=== PATIENT | male | born 1970 | race Caucasian/White ===

== ENCOUNTER 2023-02-05 07:47 | Emergency (ER) | payer OTHER, SELFPAY ==
[2023-02-05] VITALS (12 sets, daily range): BP systolic 101–116; BP diastolic 55–77; PULSE 80–88; RESP 14–24; TEMP 36.6; O2SAT 94–98; BMI 38.6
--- NOTE | 2023-02-05 07:55 | DI.CT.S_ITS ---
PROCEDURE: CT HEAD/BRAIN WO CON INDICATIONS: syncope TECHNIQUE: Noncontrast 4.5 mm thick angled axial sections acquired from the foramen magnum to the vertex, with coronal and sagittal reformats. For radiation dose reduction, the following was used: automated exposure control, adjustment of mA and/or kV according to patient size. COMPARISON: None. FINDINGS: Image quality: Excellent. CSF spaces: Basal cisterns are patent. No extra-axial fluid collections. Ventricles are normal in size and shape. Brain: No midline shift. No intracranial masses or hemorrhage. Bernal-white matter interface is normal. Skull and face: Calvarium and visualized facial bones are intact, without suspicious lesions. Sinuses: Visualized sinuses and mastoids are clear. IMPRESSION: 1. No acute intracranial process. Dictated by: Stephanie Guerra M.D. on 02/05/2023 at 8:40 Approved by: Stephanie Guerra M.D. on 02/05/2023 at 8:41
--- NOTE | 2023-02-05 07:55 | DI.RAD.S_ITS ---
PROCEDURE: XR CHEST 1V INDICATIONS: chest pain TECHNIQUE: One view of the chest was acquired. COMPARISON: None. FINDINGS: Surgical changes and devices: None. Lungs and pleura: Lungs are clear. No pleural effusions or pneumothorax. Mediastinum: Mediastinal contours appear normal. Heart size is normal. Bones and chest wall: No suspicious bony lesions. Overlying soft tissues appear unremarkable. IMPRESSION: No acute pulmonary process. Dictated by: Stephanie Guerra M.D. on 02/05/2023 at 8:42 Approved by: Stephanie Guerra M.D. on 02/05/2023 at 8:42
--- NOTE | 2023-02-05 08:03 | ED_ITS ---
HPI - Syncope General Chief Complaint: Syncope Stated Complaint: syncope/hit head Time Seen by Provider: 02/05/23 07:54 History of Present Illness HPI narrative: Patient is a 52-year-old male history of hypertension but frequently has syncopal episodes secondary to hypotension presents today with a syncopal episode with nausea vomiting. He reports that he was feeling well this morning. He can tell his blood pressure is going to drop he felt that way sitting down he also got extremely nauseous which was different he went outside threw up passed out and hit his head. There was a brief loss of consciousness no shaking no postictal period. EMS arrived he had a blood pressure of 78 and his glucose was 120. He is awake alert oriented now he has no pain. He reports this frequently happens he sees a president of the [place] and takes blood pressure medication. Related Data Previous Rx's Medication Instructions Recorded losartan 50 mg-hydrochlorothiazide 1 tab PO DAILY #60 tabs 02/05/23 12.5 mg tablet Allergies Allergy/AdvReac Type Severity Reaction Status Date / Time No Known Drug Allergies Allergy Verified 02/05/23 09:24 Patient History Social History Smoking Status: Never smoker Exam Initial Vital Signs Initial Vital Signs: Vital Signs Pulse Rate 83 02/05/23 07:59 Respiratory Rate 18 02/05/23 07:59 Pulse Oximetry 95 02/05/23 07:59 GENERAL: Patient well-appearing 52-year-old male HEENT: Head posterior abrasion no laceration bleeding controlled,EOMI, pupils reactive, face symmetric, moist mucous membranes NECK: Supple no vertebral tenderness no step-off CARDIOVASCULAR: Regular rate and rhythm without murmurs, rubs or gallops. RESPIRATORY: Breath sounds equal bilaterally, no wheezes rales or rhonchi. ABDOMEN: Soft, nontender no epigastric pain no right upper quadrant pain no distention EXTREMITIES: Normal range of motion, no clubbing or edema. Neurovascularly intact NEUROLOGICAL: Alert and oriented x4.Normal gait and speech. Packaging Specialist strength equal bilaterally moving all extremities SKIN: Warm, dry, no laceration, no petechiae, no rashes or lesions. Course Orders Ordered: ED Orders 02/05/23 07:55 CT head/brain wo con Stat XR chest 1V Stat Complete Blood Count AUTO DIFF Stat Comprehensive Metabolic Panel Stat Lipase Stat Troponin & CK Cardiac Panel Stat EKG-12 Lead Stat Discontinued Medications Sodium Chloride (Normal Saline 0.9%) 1,000 mls @ 1,000 mls/hr IV BOLUS ONE Stop: 02/05/23 08:54 Last Infusion: 02/05/23 09:20 Dose: Infused Documented By: Admin: 02/05/23 08:20 Dose: 1,000 mls/hr Documented By: JANET Sodium Chloride (Normal Saline 0.9%) 1,000 mls @ 1,000 mls/hr IV BOLUS ONE Stop: 02/05/23 10:11 Last Admin: 02/05/23 09:20 Dose: 1,000 mls/hr Documented By: JANET Vital Signs Vital signs: Vital Signs - 8 hr 02/05/23 07:59 02/05/23 08:00 02/05/23 08:00 Temperature Pulse Rate 83 83 Respiratory Rate 18 24 Blood Pressure 111/74 Pulse Oximetry 95 95 Oxygen Delivery Method 02/05/23 08:01 02/05/23 08:14 02/05/23 08:14 Temperature 97.9 F Pulse Rate 88 86 Respiratory Rate 16 22 Blood Pressure 116/77 102/55 L Pulse Oximetry 98 95 Oxygen Delivery Method Room Air 02/05/23 08:30 02/05/23 08:30 02/05/23 08:40 Temperature Pulse Rate 81 81 Respiratory Rate 16 20 Blood Pressure 103/64 Pulse Oximetry 94 97 Oxygen Delivery Method Room Air 02/05/23 08:40 02/05/23 08:50 02/05/23 08:50 Temperature Pulse Rate 80 Respiratory Rate 20 Blood Pressure 103/65 108/66 Pulse Oximetry 96 Oxygen Delivery Method 02/05/23 09:00 02/05/23 09:00 02/05/23 09:06 Temperature Pulse Rate 80 Respiratory Rate 14 Blood Pressure 101/61 102/59 L Pulse Oximetry 95 Oxygen Delivery Method 02/05/23 09:06 02/05/23 09:10 02/05/23 09:10 Temperature Pulse Rate 80 82 Respiratory Rate 22 18 Blood Pressure 105/62 Pulse Oximetry 95 94 Oxygen Delivery Method Room Air 02/05/23 09:20 02/05/23 09:20 02/05/23 09:30 Temperature Pulse Rate 80 80 Respiratory Rate 20 21 Blood Pressure 114/69 Pulse Oximetry 97 94 Oxygen Delivery Method Room Air 02/05/23 09:30 Temperature Pulse Rate Respiratory Rate Blood Pressure 114/65 Pulse Oximetry Oxygen Delivery Method MDM - Syncope Lab Data 02/05/23 07:55 02/05/23 07:55 Labs: Lab Results 02/05/23 Range/Units 07:55 WBC 11.1 H (4.5-11.0) X10^3/uL RBC 4.50 (4.5-5.9) X10^6/uL Hgb 14.4 (13.5-17.5) g/dL Hct 41.3 (41-53) % MCV 91.6 (80-100) fL MCH 32.0 (26-34) PG MCHC 34.9 (30-36) % RDW 13.2 (11.6-14.8) % Plt Count 259 (150-400) X10^3/uL Neut % (Auto) 81.9 H (50-75) % Lymph % (Auto) 10.4 L (25-40) % [place] % (Auto) 5.5 (3-14) % Eos % (Auto) 1.8 L (2-4) % Baso % (Auto) 0.4 (0-2) % Neut # (Auto) 9100 H (2570-3690) /uL Lymph # (Auto) 1200 (1582-2398) /uL [place] # (Auto) 600 (0-900) /uL Eos # (Auto) 200 (0-450) /uL Baso # (Auto) 0 (0-100) /uL Sodium 136 L (137-145) mmol/L Potassium 4.0 (3.4-5.1) mmol/L Chloride 98 (98-107) mmol/L Carbon Dioxide 29 (22-32) mmol/L BUN 22 H (9-20) mg/dL Creatinine 1.65 H (0.66-1.25) mg/dL Estimated GFR 50 L (>60) mL/min BUN/Creatinine Ratio 13.3 (6-22) Glucose 141 H (70-100) mg/dL Calcium 10.5 H (8.4-10.2) mg/dL Total Bilirubin 0.6 (0.2-1.3) mg/dL AST 50 (17-59) IU/L ALT 91 H (<50) IU/L Alkaline Phosphatase 65 (38-126) U/L Total Creatine Kinase 64 (55-170) U/L Troponin I < 0.012 (0.01-0.034) ng/mL Total Protein 8.2 (6.3-8.2) g/dL Albumin 4.8 (3.5-5.0) g/dL Globulin 3.4 (1.7-4.1) g/dL Albumin/Globulin Ratio 1.4 (1.0-2.8) Lipase 63 (23-300) U/L Imaging Data CT scan - head: Radiologist's Impression: PROCEDURE: CT HEAD/BRAIN WO CON INDICATIONS: syncope TECHNIQUE: Noncontrast 4.5 mm thick angled axial sections acquired from the foramen magnum to the vertex, with coronal and sagittal reformats. For radiation dose reduction, the following was used: automated exposure control, adjustment of mA and/or kV according to patient size. COMPARISON: None. FINDINGS: Image quality: Excellent. CSF spaces: Basal cisterns are patent. No extra-axial fluid collections. Ventricles are normal in size and shape. Brain: No midline shift. No intracranial masses or hemorrhage. Bernal-white matter interface is normal. Skull and face: Calvarium and visualized facial bones are intact, without suspicious lesions. Sinuses: Visualized sinuses and mastoids are clear. IMPRESSION: 1. No acute intracranial process. Dictated by: Stephanie Guerra M.D. on 02/05/2023 at 8:40 Chest x-ray: Radiologist's Impression: PROCEDURE: XR CHEST 1V INDICATIONS: chest pain TECHNIQUE: One view of the chest was acquired. COMPARISON: None. FINDINGS: Surgical changes and devices: None. Lungs and pleura: Lungs are clear. No pleural effusions or pneumothorax. Mediastinum: Mediastinal contours appear normal. Heart size is normal. Bones and chest wall: No suspicious bony lesions. Overlying soft tissues appear unremarkable. IMPRESSION: No acute pulmonary process. Dictated by: Stephanie Guerra M.D. on 02/05/2023 at 8:42 ECG Data Interpretation: Normal sinus rhythm rate 80 ME interval 168 QRS 100 QTC 437 no changes MDM Narrative Medical decision making narrative: Patient is a 52-year-old male with history of hypertension but frequently get hypotensive. It sounds as though that this happened again today he had a syncopal episode hypotensive for EMS. He is overall feeling better. Head CT is negative he is a small abrasion that does not require repair. Blood work does not show any anemia, however creatinine is up at 1.65 normal electrolytes and a negative troponin. He is on losartan hydrochlorothiazide 100 mg and 25 at this time I think reasonable to cut this in half and see if it helps. He is also received a L of fluid he will need to have his creatinine rechecked with his primary, he actually is already scheduled to do so. He ambulated around the ED without any difficulty. Blood pressure still fluctuated some but overall stable not tachycardic Discharge Plan Departure Patient Disposition: Home Clinical Impression: Syncope due to orthostatic hypotension Instructions: DI for Syncope in Adults (Fainting) Activity Restrictions/Additional Instructions: *You have been diagnosed with orthostatic hypotension *What to do: At this time please have your kidney function rechecked your creatinine today is 1.65 I am not sure of your baseline. Also I think decreasing the dose of your blood pressure medication be helpful. Please monitor your blood pressure at home and talk with your primary care provider this week. *Continue to take medications as directed Losartan 50/hydrochlorothiazide 12.5-> DOD *Follow up with your primary care provider in 2-3 days or call [phone] *Return to ER if you should have recurrent episodes dizziness lightheadedness or any new, worsening or concerning symptoms Prescriptions: New losartan-hydrochlorothiazide 50-12.5 mg tablet 1 tab PO DAILY Qty: 60 0RF Referrals: Miscellaneous,DoctorMD [Primary Care Provider] - Stand Alone Forms: Patient Portal/API
[2023-02-05 08:09] LABS: Add Manual Diff / Slide Review NO; Basophils Absolute Auto 0 /uL (0-100); Basophils Percent Auto 0.4 % (0-2); Eosinophils Absolute Auto 200 /uL (0-450); Eosinophils Percent Auto 1.8 % (2-4); Hematocrit 41.3 % (41-53); Hemoglobin 14.4 g/dL (13.5-17.5); Lymphocytes Absolute Auto 1200 /uL (1100-4500); Lymphocytes Percent Auto 10.4 % (25-40); Mean Corpuscular HGB Conc 34.9 % (30-36); Mean Corpuscular Volume 91.6 fL (80-100); Monocytes Absolute Auto 600 /uL (0-900); Monocytes Percent Auto 5.5 % (3-14); Neutrophils Absolute Auto 9100 /uL (1500-7000); Neutrophils Percent Auto 81.9 % (50-75); Platelet Count 259 X10^3/uL (150-400); Red Cell Distribution Width 13.2 % (11.6-14.8); White Blood Cell Count 11.1 X10^3/uL (4.5-11.0)
[2023-02-05 08:16] LABS: Alanine Aminotransferase 91 IU/L (<50); Albumin 4.8 g/dL (3.5-5.0); Albumin Globulin Ratio 1.4 (1.0-2.8); Alkaline Phosphatase 65 U/L (38-126); Aspartate Aminotransferase 50 IU/L (17-59); BUN Creatinine Ratio 13.3 (6-22); Bilirubin Total 0.6 mg/dL (0.2-1.3); Blood Urea Nitrogen 22 mg/dL (9-20); Calcium 10.5 mg/dL (8.4-10.2); Carbon Dioxide 29 mmol/L (22-32); Chloride 98 mmol/L (98-107); Creatine Kinase 64 U/L (55-170); Estimated Glomerular Filt Rate 50 mL/min (>60); Globulin 3.4 g/dL (1.7-4.1); Glucose 141 mg/dL (70-100); HEMOLYSIS < 15 (0-50); Lipase 63 U/L (23-300); Sodium 136 mmol/L (137-145); Total Protein 8.2 g/dL (6.3-8.2)
[2023-02-05] MEDS: SODIUM CHLORIDE 0.9% 1,000 ML 1000 ML IV ×2 (08:20→09:20)
[2023-02-05 08:27] LABS: Troponin I < 0.012 ng/mL (0.01-0.034)
--- NOTE | 2023-02-05 10:00 | PC.NURSE ---
Pt denied dizzy or lightheaded with ambulation.
== END 2023-02-05 10:04 | disposition home or self-care (01) ==
PROVIDERS: Emergency Provider Emergency Medicine
DX: I95.1 Orthostatic hypotension (principal); R11.2 Nausea with vomiting, unspecified; R07.9 Chest pain, unspecified
CPT/HCPCS: 36415; 70450; 71045; 80053; 82550; 83690; 84484; 85025; 93005; 93010; 96360; 99284

== ENCOUNTER 2024-08-15 15:12 | Emergency (ER) | payer OTHER, SELFPAY ==
[2024-08-15] VITALS (11 sets, daily range): BP systolic 127–171; BP diastolic 75–102; PULSE 89–102; RESP 18–20; TEMP 36.9–37; O2SAT 93–96; BMI 38.9
--- NOTE | 2024-08-15 15:29 | DI.RAD.S_ITS ---
PROCEDURE: XR FOREARM LT 2V INDICATIONS: glf TECHNIQUE: 2 views of the forearm were acquired. COMPARISON: None. FINDINGS: Bones: Radial head and neck fracture is again seen better evaluated on dedicated elbow exam. No mid to distal forearm fracture or dislocation. No suspicious bony lesions. Soft tissues: No suspicious soft tissue calcifications or masses. IMPRESSION: No mid to distal radial ulnar fracture or dislocation. Intra-articular fracture of radial head and neck better evaluated on dedicated elbow exam. Dictated by: Sen Garcia M.D. on 08/15/2024 at 16:35 Approved by: Sen Garcia M.D. on 08/15/2024 at 16:35
--- NOTE | 2024-08-15 15:29 | DI.RAD.S_ITS ---
PROCEDURE: XR ELBOW LT MIN 3V INDICATIONS: glf TECHNIQUE: 4 views of the elbow were acquired. COMPARISON: None. FINDINGS: Bones: Slightly displaced fracture involving radial head and neck with fracture line extending to its articulation with capitellum and up to 4 mm depression at fracture site. No suspicious bony lesions. Soft tissues: Moderate to large elbow joint effusion. No suspicious soft tissue calcifications. IMPRESSION: Slightly displaced intra-articular fracture of proximal radial head and neck as above. Moderate to large joint effusion. Dictated by: Sen Garcia M.D. on 08/15/2024 at 16:34 Approved by: Sen Garcia M.D. on 08/15/2024 at 16:34
--- NOTE | 2024-08-15 15:30 | DI.RAD.S_ITS ---
PROCEDURE: XR CHEST 2V INDICATIONS: glf TECHNIQUE: 2 views of the chest were acquired. COMPARISON: [facility], CR, XR CHEST 1V, 02/05/2023, 7:59. FINDINGS: Surgical changes and devices: None. Lungs and pleura: Lungs are clear. No pleural effusions or pneumothorax. Mediastinum: Mediastinal contours are normal. Heart size is enlarged. Bones and chest wall: No suspicious bony abnormalities. Soft tissues appear unremarkable. IMPRESSION: No acute cardiopulmonary pathology. Dictated by: Sen Garcia M.D. on 08/15/2024 at 16:35 Approved by: Sen Garcia M.D. on 08/15/2024 at 16:36
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
[2024-08-15] MEDS: ONDANSETRON 4 MG ODT SL (18:37)
[2024-08-15] MEDS: HYDROCODONE/ACET 5/325 TABLET 2 TAB PO (18:37)
[2024-08-15] MEDS: BACITRACIN OINT 0.9 GM PCKT 1 APPLIC TOP (20:00)
== END 2024-08-15 20:38 | disposition home or self-care (01) ==
PROVIDERS: Emergency Provider Emergency Medicine
DX: S52.132A Displaced fracture of neck of left radius, initial encounter for closed fracture (principal); S52.122A Displaced fracture of head of left radius, initial encounter for closed fracture; R07.9 Chest pain, unspecified; W18.30XA Fall on same level, unspecified, initial encounter; Y93.I9 Activity, other involving external motion
CPT/HCPCS: 29105; 71046; 73080; 73090; 99284